=== PATIENT | male | born 1960 | race Hispanic/Latino ===

== ENCOUNTER 2018-04-20 00:07 | Observation (INO) | payer BC ==
[2018-04-20] MEDS ORDERED: Sodium Chloride 0.9% 1,000 ML IV STA (01:20)
--- NOTE | 2018-04-20 01:49 | ED PDOC ---
Arrival/HPI <Mart Fragoso - Last Filed: 04/20/18 04:26> - General Historian: Patient - History of Present Illness Narrative History of Present Illness (Text): 04/20/18 01:30 Pt is a 57 yo M with no significant pmhx who presents for dizziness and vomiting for the past 2 hours. He states that he feels as if the room is spinning and cant open his eyes or else he feel very unsteady. He states that he has been feeling this way since yesterday but only got worse about 2 hours ago, when he began to vomit. He reports that a similar episode happened about 2 years ago when he had food poisoning. He admits to having 1 bout of diarrhea yesterday, and states that he did eat out somewhere but is unsure what he had. He denies any pain, fevers, chills, chest pain, SOB, cough, abd pain, or dysuria. Pmhx: Denies Pshx: Denies Meds: Denies All: NKDA Social: Denies any tobacco hx, denies etoh or illicit drug use Fam hx: Denies Time/Duration: 1-3 hours Symptom Onset: Sudden Symptom Course: Improving <Tiburcio Hunter - Last Filed: 04/20/18 05:46> - General Chief Complaint: Dizziness/Lightheaded Time Seen by Provider: 04/20/18 00:09 Past Medical History - Provider Review Nursing Documentation Reviewed: Yes - Infectious Disease Hx of Infectious Diseases: None - Psychiatric Hx Substance Use: No - Anesthesia Hx Anesthesia: No <Tiburcio Hunter - Last Filed: 04/20/18 05:46> Family/Social History - Physician Review Nursing Documentation Reviewed: Yes Family/Social History: No Known Family HX Smoking Status: Never Smoked Hx Alcohol Use: No Hx Substance Use: No <Tiburcio Hunter - Last Filed: 04/20/18 05:46> Allergies/Home Meds <Mart Fragoso - Last Filed: 04/20/18 04:26> <Tiburcio Hunter - Last Filed: 04/20/18 05:46> Allergies/Adverse Reactions: Allergies No Known Allergies Allergy (Verified 04/20/18 05:44) Home Medications: Home Meds Medication Instructions Recorded Confirmed No Known Home Med 04/20/18 04/20/18 Review of Systems - Review of Systems Gastrointestinal: Vomiting Neurological: Dizziness <Mart Fragoso - Last Filed: 04/20/18 04:26> - Physician Review All systems were reviewed & negative as marked: Yes - Review of Systems Eyes: absent: Vision Changes ENT: absent: Hearing Changes, Tinnitus Cardiovascular: absent: Chest Pain, Syncope <Tiburcio Hunter - Last Filed: 04/20/18 05:46> Physical Exam Vital Signs Pulse Resp BP Pulse Ox 04/20/18 00:19 70 17 135/79 100 <Mart Fragoso - Last Filed: 04/20/18 04:26> Vital Signs Reviewed: Yes Vital Signs Pulse Resp BP Pulse Ox 04/20/18 00:19 70 17 135/79 100 Blood Pressure: Normal Pulse: Regular Respiratory Rate: Normal Appearance: Positive for: Uncomfortable Pain Distress: None Mental Status: Positive for: Alert and Oriented X 3 - Systems Exam Head: Present: Atraumatic, Normocephalic Pupils: Present: PERRL Extroacular Muscles: Present: Other (nystagmus present) Neck: Present: Normal Range of Motion. No: Meningeal Signs Respiratory/Chest: Present: Clear to Auscultation, Good Air Exchange. No: Respiratory Distress, Accessory Muscle Use, Wheezes, Rales, Rhonchi Cardiovascular: Present: Regular Rate and Rhythm, Normal S1, S2. No: Murmurs, Rub, Gallop Abdomen: Present: Normal Bowel Sounds. No: Tenderness, Distention, Peritoneal Signs, Rebound, Guarding Lower Extremity: Present: Normal Inspection, Neurovascularly Intact. No: Edema, CALF TENDERNESS, Nicole's Sign, Tenderness Neurological: Present: GCS=15, Speech Normal, Normal Sensory Function Skin: Present: Warm, Dry, Normal Color. No: Rashes Psychiatric: Present: Alert, Oriented x 3, Normal Insight, Normal Concentration <Tiburcio Hunter - Last Filed: 04/20/18 05:46> Medical Decision Making ED Course and Treatment: EXAM: CT Head w/o contrast SIGNED ON: 04/20/18 03:18 BY: Masha Wells M.D. IMPRESSION: Normal unenhanced CT scan of the brain. 04/20/18 04:[address] Carlos Graham who is aware and agrees with the plan. Accepts patient into his service. In agreement with resident note, which includes further HPI details. Patient was seen and evaluated with resident, came up with plan and treatment together. 57 year old male presents complaining of dizziness and vomiting for the past 2 hours. Plan: -- CT Head w/o contrast -- labs -- EKG -- Ativert, IV Fluids, Zofran inj - Lab Interpretations I have reviewed the lab results: Yes - RAD Interpretation Radiology Orders: 04/20/18 00:31 HEAD W/O CONTRAST [CT] Stat - EKG Interpretation Interpreted by ED Physician: Yes Type: 12 lead EKG - Medication Orders Current Medication Orders: Sodium Chloride (Sodium Chloride 0.9%) 1,000 mls @ 999 mls/hr IV .Q1H1M STA Stop: 04/20/18 02:20 Discontinued Medications Meclizine HCl (Antivert) 25 mg PO STAT STA Stop: 04/20/18 00:31 Ondansetron HCl (Zofran Inj) 4 mg IVP STAT STA Stop: 04/20/18 00:31 Ondansetron HCl (Zofran Inj) 4 mg IVP STAT STA Stop: 04/20/18 01:04 <Mart Fragoso - Last Filed: 04/20/18 04:26> ED Course and Treatment: 04/20/18 04:01 Pt is a 57 yo M with pmhx detailed above who presents for intractable dizziness and vomiting. - CBC - CMP - EKG - CT head w/o contrast - Zofran - Meclizine - RAD Interpretation Radiology Orders: 04/20/18 00:31 HEAD W/O CONTRAST [CT] Stat - EKG Interpretation EKG Interpretation (Text): 04/20/18 04:16 NSR @ 67 bpm Normal EKG - Medication Orders Current Medication Orders: Sodium Chloride (Sodium Chloride 0.9%) 1,000 mls @ 999 mls/hr IV .Q1H1M STA Stop: 04/20/18 02:20 Discontinued Medications Meclizine HCl (Antivert) 25 mg PO STAT STA Stop: 04/20/18 00:31 Ondansetron HCl (Zofran Inj) 4 mg IVP STAT STA Stop: 04/20/18 00:31 Ondansetron HCl (Zofran Inj) 4 mg IVP STAT STA Stop: 04/20/18 01:04 <Tiburcio Hunter - Last Filed: 04/20/18 05:46> - PA / PHARMACOGNOSIST / Resident Statement / has reviewed & agrees with the documentation as recorded. / has examined the patient and agrees with the treatment plan. - Scribe Statement The provider has reviewed the documentation as recorded by the Rudy Gallegos Provider Scribe Attestation: All medical record entries made by the Rudy were at my direction and personally dictated by me. I have reviewed the chart and agree that the record accurately reflects my personal performance of the history, physical exam, medical decision making, and the department course for this patient. I have also personally directed, reviewed, and agree with the discharge instructions and disposition. <Mart Fraogso - Last Filed: 04/20/18 04:26> Disposition/Present on Arrival - Present on Arrival Any Indicators Present on Arrival: No History of DVT/PE: No History of Uncontrolled Diabetes: No Urinary Catheter: No History of Decub. Ulcer: No History Surgical Site Infection Following: None - Disposition Have Diagnosis and Disposition been Completed?: Yes Disposition Time: 04:27 Patient Plan: Observation <Mart Fragoso - Last Filed: 04/20/18 04:26> - Present on Arrival Any Indicators Present on Arrival: No History of DVT/PE: No History of Uncontrolled Diabetes: No Urinary Catheter: No History of Decub. Ulcer: No History Surgical Site Infection Following: None - Disposition Have Diagnosis and Disposition been Completed?: Yes Patient Plan: Observation <Tiburcio Hunter - Last Filed: 04/20/18 05:46> - Disposition Diagnosis: Near syncope, Vertigo Disposition: HOSPITALIZED Patient Problems: Current Active Problems Problem Status Onset Near syncope Acute Vertigo Acute Condition: GOOD
[2018-04-20 01:53] LABS: BASO # 0.04 K/mm3 (0.0-2.0); BASO % 0.3 % (0.0-3.0); EOS # 0.4 (0.0-0.7); EOS % 2.7 % (1.5-5.0); GRAN # 11.44 (1.4-6.5); GRAN % 73.8 % (50.0-68.0); HEMOGLOBIN 15.9 g/dL (14.0-18.0); LYMPH # 2.7 (1.2-3.4); LYMPH % 17.7 % (22.0-35.0); MEAN CELL VOLUME 85.9 fl (80.0-105.0); MEAN CORPUSCULAR HEMOGLOBIN 30.8 pg (25.0-35.0); MEAN CORPUSCULAR HGB CONC 35.9 g/dl (31.0-37.0); MEAN PLATELET VOLUME 8.7 fl (7.0-11.0); MONO # 0.9 (0.1-0.6); MONO % 5.5 % (1.0-6.0); RBC 5.16 10^6/uL (3.5-6.1); RED CELL DISTRIBUTION WIDTH 13.2 % (11.5-14.5); WHITE BLOOD COUNT 15.5 10^3/ul (4.5-11.0)
[2018-04-20 01:59] LABS: ALB/GLOB RATIO 1.4 (1.1-1.8); ALBUMIN 4.9 g/dL (3.0-4.8); ALT/SGPT 36 U/L (7-56); AST/SGOT 39 U/L (17-59); BLOOD UREA NITROGEN 15 mg/dL (7-21); CALCIUM 9.7 mg/dL (8.4-10.5); GFR NON-AFRICAN AMERICAN > 60
[2018-04-20 02:09] LABS: TROPONIN I < 0.01 ng/mL
[2018-04-20 08:19] LABS: HEMOGLOBIN 14.7 g/dL (14.0-18.0); MEAN CORPUSCULAR HEMOGLOBIN 30.1 pg (25.0-35.0); MEAN CORPUSCULAR HGB CONC 35.4 g/dl (31.0-37.0); MEAN PLATELET VOLUME 8.2 fl (7.0-11.0); RBC 4.88 10^6/uL (3.5-6.1); RED CELL DISTRIBUTION WIDTH 13.1 % (11.5-14.5); WHITE BLOOD COUNT 13.3 10^3/ul (4.5-11.0)
--- NOTE | 2018-04-20 09:48 | CT ---
Date of service: 04/20/2018 PROCEDURE: CT HEAD WITHOUT CONTRAST. HISTORY: Dizziness COMPARISON: None available. TECHNIQUE: Axial computed tomography images were obtained through the head/brain without intravenous contrast. Radiation dose: Total exam DLP = 947 mGy-cm. This CT exam was performed using one or more of the following dose reduction techniques: Automated exposure control, adjustment of the mA and/or kV according to patient size, and/or use of iterative reconstruction technique. FINDINGS: HEMORRHAGE: No intracranial hemorrhage. BRAIN: No mass effect or edema. No atrophy or chronic microvascular ischemic changes. VENTRICLES: Unremarkable. No hydrocephalus. CALVARIUM: Unremarkable. PARANASAL SINUSES: Unremarkable as visualized. No significant inflammatory changes. MASTOID AIR CELLS: Unremarkable as visualized. No inflammatory changes. OTHER FINDINGS: The report concurs with the preliminary [facility] report IMPRESSION: Normal CT of the Head.
[2018-04-20] MEDS: Dextrose 5%/0.45% NS 1,000 ML IV SCH (11:36)
--- NOTE | 2018-04-20 13:02 | CARD ---
APPROVED REPORT Date of service: 04/20/2018 EKG Measurement Heart [id number] <Conclusion> Normal sinus rhythm Normal ECG
[2018-04-21 07:55] VITALS: O2SAT 97
[2018-04-21] MEDS ORDERED: Dexamethasone 2 MG in Sodium Chloride 0.9% 50 ML IV ONE (11:28)
[2018-04-21 12:06] VITALS: RESP 20
[2018-04-21] MEDS ORDERED: Naproxen 275 mg Tab PO PRN (12:17)
[2018-04-21] MEDS ORDERED: Naproxen 275 mg Tab PO STA (12:17)
[2018-04-21] MEDS: Dextrose 5%/0.45% NS 1,000 ML IV SCH (12:19)
--- NOTE | 2018-04-21 14:24 | CON ---
DATE: 04/21/2018 HISTORY OF PRESENT ILLNESS: This is a 57-year-old man with no significant past medical history. He came in with dizziness, being lightheaded and the room spinning with episode of vomiting open his eyes, usually feeling unsteady on his feet. Currently, he was given meclizine in the hospital, which his dizziness seems a lot better. He had a similar episode 2 years ago after food positioning. He admits to have one bout of diarrhea after eating some food that was unsure if it was old or not. He has currently no focal weakness, no nystagmus. He is moving all extremities. He is communicating well. His dizziness is much better. His CAT scan of the head showed no acute intracranial abnormalities. I gave him one dose of IV dexamethasone 2 mg x1 dose to reduce the intensity of dizziness. He is on meclizine p.r.n. He will be going for the MRI of the brain to see if any structural abnormality is causing dizziness, otherwise he will be seen as an outpatient. PAST MEDICAL HISTORY: Nothing significant. SOCIAL HISTORY: No illicit drug use, smoking or EtOH abuse. REVIEW OF SYSTEMS: Fourteen-point review of systems is negative except as per the HPI. FAMILY HISTORY: Noncontributory. MEDICATIONS: Reviewed by nurses's reconciliation sheet. LABORATORY DATA: Sodium is 140, potassium 3.6, chloride 101, carbon dioxide 22, BUN of 15, creatinine 0.8, random glucose of 149. PHYSICAL EXAMINATION: VITAL SIGNS: Temperature of 97.5, pulse rate of 71, blood pressure of 116/71, respiratory rate of 21, oxygen saturation 97% by room air. GENERAL: The patient is sitting up in bed, in no acute distress. HEENT: Atraumatic, normocephalic. PERRLA. Extraocular muscles intact. NECK: Supple. No JVD, no adenopathy noted. LUNGS: Clear to auscultation. No adventitious sounds. HEART: S1 and S2. Normal rate and rhythm. No murmurs, rubs or gallops. ABDOMEN: Soft, nontender and nondistended. Bowel sounds are present. EXTREMITIES: No clubbing. No cyanosis. Peripheral pulses 2+ felt bilaterally. NEUROLOGIC: The patient is alert and oriented to person, place, month and year. Speech is fluent without any errors. Cranial nerves II through XII are intact. Motor exam: Moves all extremities equally. No pronator drift seen. Sensory exam: Light touch, pinprick, proprioception and vibration are intact. DTRs are 2+ throughout. Coordination: [id number] intact. No dysmetria noted. Gait is deferred for now. No nystagmus seen on lateral movements of the eyes. IMPRESSION: Dizziness, seems mostly likely secondary to positional vertigo/vestibular neuritis, superimposed possibly underlying postural-induced dizziness. At this time, I will recommend, 1. Meclizine 25 mg p.o. t.i.d. at the acute onset of dizziness. 2. Outpatient vestibular therapy. 3. One dose of dexamethasone 2 mg to reduce the acute onset of dizziness. 4. MRI of the brain to see any structural abnormality is causing dizziness and if the MRI of the brain is negative, he can be discharged home and follow up as an outpatient. Thank you for this consult. Chip Stokes MD
[2018-04-21 17:58] VITALS: BP 123/84; PULSE 55; TEMP 98.3
--- NOTE | 2018-04-22 11:10 | MRI ---
Date of service: 04/21/2018 PROCEDURE: MRI BRAIN WITHOUT CONTRAST HISTORY: vertigo COMPARISON: Noncontrast head CT from 04/20/2018. TECHNIQUE: Multiplanar, multisequence MR images of the brain were obtained without intravenous contrast enhancement. FINDINGS: HEMORRHAGE: None DWI: No evidence of an acute or early subacute infarction. BRAIN PARENCHYMA: There is an old infarction in the right occipital lobe. There are few scattered T2/FLAIR hyperintense foci in the subcortical supratentorial frontal white matter. There is no mass, mass effect or abnormal extra-axial fluid collection. There is mild tonsillar ectopia. VENTRICLES: The ventricles are normal in size, shape and configuration. CRANIUM: There is normal bone marrow signal pattern. ORBITS: Grossly unremarkable. PARANASAL SINUSES/MASTOIDS: There is mild mucosal thickening in the paranasal sinuses, worse in the ethmoid air cells and left sphenoid chamber, and a small retention cyst/polyp in the left maxillary sinus. VASCULAR SYSTEM: There are normal signal voids in the larger intracranial arteries. OTHER FINDINGS: None. IMPRESSION: No acute intracranial abnormality. 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 Minimal supratentorial subcortical white matter changes are strictly nonspecific, the differential considerations include migraine headache effect, gliosis, early chronic microangiopathic changes amongst others. Mild chronic sinusitis, worse in the ethmoid air cells and left sphenoid chamber. A preliminary report was provided by [facility].
== END 2018-04-21 20:33 | disposition home or self-care (01) ==
LOC: ED 00:07 → ERH 04:15 → 2RNO 05:17
PROVIDERS: ADMIT Internal Medicine; ATTEND Internal Medicine
DX: H93.3X9 Disorders of unspecified acoustic nerve (principal); H81.10 Benign paroxysmal vertigo, unspecified ear; R55 Syncope and collapse; R42 Dizziness and giddiness
CPT/HCPCS: 36415; 70450; 70551; 80053; 82550; 83615; 83735; 84484; 85025; 85027; 93005; 99285; G0378; J1100; J7042

== ENCOUNTER 2018-07-10 15:04 | Observation (INO) | payer BC ==
[2018-07-10 15:26] VITALS: BMI 29.9
--- NOTE | 2018-07-10 15:46 | ED PDOC ---
Arrival/HPI - General Chief Complaint: Syncope Time Seen by Provider: 07/10/18 15:25 Historian: Patient, Spouse - History of Present Illness Narrative History of Present Illness (Text): 07/10/18 15:39 57 year old male, with no significant past medical history, presents to the emergency department s/p syncopal episode, 1 hour prior to arrival. Patient notes he was at the neurologist's office when he began to feel lightheaded while sitting and passed out. states that he was sweating and turned pale during syncope. Neurologist saw his heart rate drop down to 40 BPM and sent to the emergency department for further evaluation. As per documentation, MRA shows left carotid proximal ICA with critical stenosis, no significant stenosis on the right carotid. Patient denies any current complaints. He denies fevers, chills, headache, dizziness, chest pain, shortness of breath, dyspnea on exertion, cough, abdominal pain, nausea, vomiting, diarrhea, back pain, neck pain, or any other complaint. PMD: Dr. Graham Neurologist: Dr. Nir Sung 07/10/18 17:45 Time/Duration: 1 hour Symptom Onset: Sudden Activities at Onset: Light Context: Other (doctors office) Past Medical History - Provider Review Nursing Documentation Reviewed: Yes - Infectious Disease Hx of Infectious Diseases: None - Cardiac Hx Cardiac Disorders: No - Pulmonary Hx Respiratory Disorders: No - Neurological Hx Neurological Disorder: No - HEENT Hx HEENT Disorder: No - Renal Hx Renal Disorder: No - Endocrine/Metabolic Hx Endocrine Disorders: No - Hematological/Oncological Hx Blood Disorders: No - Integumentary Hx Dermatological Disorder: No - Musculoskeletal/Rheumatological Hx Musculoskeletal Disorders: No Hx Falls: No - Gastrointestinal Hx Gastrointestinal Disorders: No - Genitourinary/Gynecological Hx Genitourinary Disorders: No - Psychiatric Hx Psychophysiologic Disorder: No Hx Substance Use: No - Anesthesia Hx Anesthesia: No Family/Social History - Physician Review Nursing Documentation Reviewed: Yes Family/Social History: No Known Family HX Smoking Status: Never Smoked Hx Alcohol Use: No Hx Substance Use: No Allergies/Home Meds Allergies/Adverse Reactions: Allergies No Known Allergies Allergy (Verified 04/20/18 05:44) Review of Systems - Physician Review All systems were reviewed & negative as marked: Yes - Review of Systems Constitutional: absent: Fatigue, Weight Change, Fevers Eyes: absent: Vision Changes, Photophobia ENT: absent: Hearing Changes, Tinnitus Respiratory: absent: SOB, Cough Cardiovascular: Syncope. absent: Chest Pain Gastrointestinal: absent: Abdominal Pain, Diarrhea, Nausea, Vomiting Genitourinary Male: absent: Dysuria, Frequency, Hematuria Musculoskeletal: absent: Back Pain, Neck Pain Skin: absent: Rash Neurological: absent: Headache, Dizziness Endocrine: absent: Diaphoresis Psychiatric: absent: Anxiety, Depression Physical Exam Vital Signs Reviewed: Yes Vital Signs Temp Pulse Resp BP Pulse Ox 07/10/18 15:24 98.4 F 56 L 17 128/68 99 Temperature: Afebrile Blood Pressure: Normal Pulse: Bradycardic Respiratory Rate: Normal Appearance: Positive for: Well-Appearing, Non-Toxic, Comfortable Pain Distress: None Mental Status: Positive for: Alert and Oriented X 3 - Systems Exam Head: Present: Atraumatic, Normocephalic Pupils: Present: PERRL Extroacular Muscles: Present: EOMI Conjunctiva: Present: Normal Ears: Present: Normal, NORMAL TM Mouth: Present: Moist Mucous Membranes Pharnyx: Present: Normal. No: ERYTHEMA, EXUDATE Neck: Present: Normal Range of Motion. No: Meningeal Signs, MIDLINE TENDERNESS Respiratory/Chest: Present: Clear to Auscultation, Good Air Exchange. No: Respiratory Distress, Accessory Muscle Use Cardiovascular: Present: Regular Rate and Rhythm, Normal S1, S2. No: Murmurs Abdomen: No: Tenderness, Distention, Peritoneal Signs Back: Present: Normal Inspection. No: CVA Tenderness Upper Extremity: Present: Normal Inspection. No: Cyanosis, Edema Lower Extremity: Present: Normal Inspection. No: Edema Neurological: Present: GCS=15, CN II-XII Intact, Speech Normal, Motor Func Grossly Intact, Normal Sensory Function, Normal Cerebellar Funct, Gait Normal Skin: Present: Warm, Dry, Normal Color. No: Rashes Psychiatric: Present: Alert, Oriented x 3, Normal Insight, Normal Concentration Medical Decision Making ED Course and Treatment: 07/10/18 15:47 Impression: 57 year old male who presents to the emergency department s/p syncope. Likely cardiogenic vs neurogenic syncope, however per family bedside, Dr. loyola indicated likely cardiogenic. L carotid stenosis per MRA recently. Pt denies any FND. Normal neuro exam. No reported seizure like activity. No abdominal pain, headache, chest pain or sob. No fall or trauma. No chest pain or sob. Given that pt was abril into the 40's ?arrythmia. Will seek labs. Plan: -- EKG -- Labs -- IV Fluids -- Cardiac Enzymes -- Reassess and disposition Prior Visits: Notes and results from previous visits were reviewed. Progress Notes: EKG reviewed, shows: Sinus bradycardiac at 54 BPM. No stemi. Pressure stable 07/10/18 17:40 appreciate consult w/ Dr. Loyola: Syncope likely cardiogenic and non- neurogenic. left CA findings non-contributory to syncope. Pt was abril in front of him w/ out any exertion/ stressors, unlikely vasovagal. No Focal neuroligical deficits or seizure like activity noted. appreciate consult w/ Dr. Calderon: To admit to his broth, augustine pena, tele for syncope w/u pt and family agreeable to plan. Pt in NAD. - Lab Interpretations I have reviewed the lab results: Yes - EKG Interpretation Interpreted by ED Physician: Yes Type: 12 lead EKG - Scribe Statement The provider has reviewed the documentation as recorded by the Rudy Gray Provider Scribe Attestation: All medical record entries made by the Scribe were at my direction and personally dictated by me. I have reviewed the chart and agree that the record accurately reflects my personal performance of the history, physical exam, medical decision making, and the department course for this patient. I have also personally directed, reviewed, and agree with the discharge instructions and disposition. Disposition/Present on Arrival - Present on Arrival Any Indicators Present on Arrival: No History of DVT/PE: No History of Uncontrolled Diabetes: No Urinary Catheter: No History of Decub. Ulcer: No History Surgical Site Infection Following: None - Disposition Have Diagnosis and Disposition been Completed?: Yes Diagnosis: Syncope Disposition: HOSPITALIZED Disposition Time: 17:46 Condition: GOOD Discharge Instructions (ExitCare): Syncope (ED) Forms: [employer] [facility] [facility] (Gabonese)
[2018-07-10] MEDS: Sodium Chloride 0.9% 1,000 ML IV SCH (16:35)
[2018-07-10 16:54] LABS: ALB/GLOB RATIO 1.4 (1.1-1.8); ALBUMIN 4.5 g/dL (3.0-4.8); ALT/SGPT 39 U/L (7-56); AST/SGOT 33 U/L (17-59); BLOOD UREA NITROGEN 15 mg/dL (7-21); CALCIUM 9.3 mg/dL (8.4-10.5); GFR NON-AFRICAN AMERICAN > 60
[2018-07-10 16:55] LABS: BASO # 0.02 K/mm3 (0.0-2.0); BASO % 0.2 % (0.0-3.0); EOS # 0.4 (0.0-0.7); EOS % 4.1 % (1.5-5.0); GRAN # 6.3 (1.4-6.5); GRAN % 68.7 % (50.0-68.0); LYMPH # 1.9 (1.2-3.4); LYMPH % 20.9 % (22.0-35.0); MEAN CELL VOLUME 88.3 fl (80.0-105.0); MEAN CORPUSCULAR HEMOGLOBIN 30.4 pg (25.0-35.0); MEAN CORPUSCULAR HGB CONC 34.4 g/dl (31.0-37.0); MEAN PLATELET VOLUME 8.4 fl (7.0-11.0); MONO # 0.6 (0.1-0.6); MONO % 6.1 % (1.0-6.0); RBC 4.94 10^6/uL (3.5-6.1); RED CELL DISTRIBUTION WIDTH 13.6 % (11.5-14.5); WHITE BLOOD COUNT 9.2 10^3/uL (4.5-11.0)
[2018-07-10 17:06] LABS: TROPONIN I < 0.01 ng/mL
--- NOTE | 2018-07-10 18:48 | CARD ---
APPROVED REPORT Date of service: 07/10/2018 EKG Measurement Heart [id number] <Conclusion> Sinus bradycardia Otherwise normal ECG
[2018-07-11] MEDS: Sodium Chloride 0.9% 1,000 ML IV SCH ×3 (05:56→17:50)
--- NOTE | 2018-07-11 08:08 | CP.PCM.CON ---
History of Present Illness - History of Present Illness History of Present Illness: Awake, alert, lying in bed, no distress Reason for consultation: Cardiac evaluation of syncope Brief history of present illness:A 57 year old male who was brought to the ER by EMS due to syncopal episode at Neurologist's office.He began to feel lightheaded while sitting and passed out witnessed by and doctor. Heart rate at that time was 40/min as checked by neurologist. He had similar episode last April 2018 and work up was on going. 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 Neurologist was explaining the result of the MRA when passing out happened. Denies chest pain, Denies shortness of breath. Seen and examined by me and Dr. Guzmán Review of Systems - Review of Systems All systems: reviewed and no additional remarkable complaints except Review of Systems: as per HPI Past Patient History - Infectious Disease Hx of Infectious Diseases: None - Past Social History Smoking Status: Never Smoked - CARDIAC Hx Cardiac Disorders: No - PULMONARY Hx Respiratory Disorders: No - NEUROLOGICAL Hx Neurological Disorder: (vertigo) - HEENT Hx HEENT Problems: No - RENAL Hx Chronic Kidney Disease: No - ENDOCRINE/METABOLIC Hx Endocrine Disorders: No - HEMATOLOGICAL/ONCOLOGICAL Hx Blood Disorders: No - INTEGUMENTARY Hx Dermatological Problems: No - MUSCULOSKELETAL/RHEUMATOLOGICAL Hx Falls: No - GASTROINTESTINAL Hx Gastrointestinal Disorders: No - GENITOURINARY/GYNECOLOGICAL Hx Genitourinary Disorders: No - PSYCHIATRIC Hx Psychophysiologic Disorder: No Hx Substance Use: No - SURGICAL HISTORY Hx Surgeries: No - ANESTHESIA Hx Anesthesia: No Meds Allergies/Adverse Reactions: Allergies Allergy/AdvReac Type Severity Reaction Status Date / Time No Known Allergies Allergy Verified 04/20/18 05:44 - Medications Medications: Current Medications Sodium Chloride (Sodium Chloride 0.9%) 1,000 mls @ 100 mls/hr IV .Q10H ATA Last Admin: 07/11/18 06:58 Dose: Not Given Physical Exam - Constitutional Appears: Non-toxic, No Acute Distress - Head Exam Head Exam: NORMAL INSPECTION, NORMOCEPHALIC - Eye Exam Eye Exam: Normal appearance Pupil Exam: NORMAL ACCOMODATION - ENT Exam ENT Exam: Mucous Membranes Moist, Normal Exam - Respiratory Exam Respiratory Exam: Clear to Auscultation Bilateral, NORMAL BREATHING PATTERN - Cardiovascular Exam Cardiovascular Exam: Bradycardia, +S1, +S2 Additional comments: Telemetry SB 50's - GI/Abdominal Exam GI & Abdominal Exam: Normal Bowel Sounds, Soft - Extremities Exam Extremities exam: Positive for: full ROM, normal capillary refill - Neurological Exam Neurological exam: Alert, Normal Gait, Oriented x3 Additional comments: denies dizziness - Psychiatric Exam Psychiatric exam: Normal Affect, Normal Mood - Skin Skin Exam: Dry, Normal Color, Warm Results - Vital Signs Recent Vital Signs: Last Vital Signs Temp 96 F L 07/11/18 06:00 Pulse 59 L 07/11/18 06:00 Resp 20 07/11/18 06:00 BP 110/67 07/11/18 06:00 Pulse Ox 96 07/11/18 06:00 - Labs Result Diagrams: 07/10/18 16:40 07/10/18 16:40 Labs: Laboratory Results - last 24 hr 07/10/18 07/10/18 07/10/18 16:40 16:40 16:40 WBC 9.2 RBC 4.94 Hgb 15.0 Hct 43.6 MCV 88.3 D MCH 30.4 MCHC 34.4 RDW 13.6 Plt Count 215 MPV 8.4 Gran % 68.7 H Lymph % (Auto) 20.9 L Payne % (Auto) 6.1 H Eos % (Auto) 4.1 Baso % (Auto) 0.2 Gran # 6.30 Lymph # (Auto) 1.9 Payne # (Auto) 0.6 Eos # (Auto) 0.4 Baso # (Auto) 0.02 Sodium 138 Potassium 4.9 Chloride 104 Carbon Dioxide 31 Anion Gap 9 L BUN 15 Creatinine 0.8 Est GFR ( Amer) > 60 Est GFR (Non-Af Amer) > 60 Random Glucose 85 Calcium 9.3 Magnesium 2.3 H Total Bilirubin 0.5 AST 33 ALT 39 Alkaline Phosphatase 55 Troponin I < 0.01 Total Protein 7.8 Albumin 4.5 Globulin 3.2 Albumin/Globulin Ratio 1.4 TSH 3rd Generation 2.29 Assessment & Plan - Assessment and Plan (Free Text) Assessment: A 57 year old male who was brought to the ER by EMS due to syncopal episode at Neurologist's office.He began to feel lightheaded while sitting and passed out witnessed by and doctor. Heart rate at that time was 40/min as checked by neurologist. He had similar episode last April 2018 but not passing out and work up was on going. 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 Neurologis t was explaining the result of the MRA when passing out happened. History of vertigo,on Antivert. Denies any cardiac history. Denies chest pain, Denies shortness of breath. Troponin normal.No previous cardiac work up done at [facility] [place], [place]. Will order ECHO to evaluate LV function. Holter monitor to rule out arrythmias. Normal orthostatic blood pressure. Plan: No distress, denies chest pain ECHO to evaluate LV function. Holter monitor to rule out arrythmias. Heart rate on 50's- telemetry No betablockers Orthostatic blood pressure normal Lying BP-110/67 Sitting BP- 140/94 Standing BP-139/95 Continue current treatment Continue current medications Further recommendations during hospital course Chart reviewed Will follow up Plan and treatment discussed with Dr. Guzmán Thank you Dr. Graham for the opportunity of taking care of Mr. Carlos Lyn - Date & Time Date: 07/11/18 Time: 06:30
--- NOTE | 2018-07-11 08:49 | RAD ---
Date of service: 07/10/2018 HISTORY: syncope COMPARISON: No prior. TECHNIQUE: Chest PA and lateral FINDINGS: LUNGS: No active pulmonary disease. PLEURA: No significant pleural effusion identified. No pneumothorax apparent. CARDIOVASCULAR: No aortic atherosclerotic calcification present. Normal cardiac size. No pulmonary vascular congestion. OSSEOUS STRUCTURES: No significant abnormalities. VISUALIZED UPPER ABDOMEN: Normal. OTHER FINDINGS: None. IMPRESSION: No active disease.
[2018-07-11 09:10] LABS: BASO # 0.03 K/mm3 (0.0-2.0); BASO % 0.4 % (0.0-3.0); EOS # 0.5 (0.0-0.7); EOS % 6.7 % (1.5-5.0); GRAN # 3.67 (1.4-6.5); GRAN % 52.6 % (50.0-68.0); HEMOGLOBIN 14.7 g/dL (14.0-18.0); LYMPH # 2.2 (1.2-3.4); LYMPH % 31.9 % (22.0-35.0); MEAN CELL VOLUME 88.7 fl (80.0-105.0); MEAN CORPUSCULAR HEMOGLOBIN 30.2 pg (25.0-35.0); MEAN CORPUSCULAR HGB CONC 34.1 g/dl (31.0-37.0); MONO # 0.6 (0.1-0.6); MONO % 8.4 % (1.0-6.0); RBC 4.86 10^6/uL (3.5-6.1); RED CELL DISTRIBUTION WIDTH 13.7 % (11.5-14.5)
[2018-07-11 09:20] LABS: ALB/GLOB RATIO 1.4 (1.1-1.8); ALBUMIN 4.3 g/dL (3.0-4.8); ALT/SGPT 36 U/L (7-56); AST/SGOT 29 U/L (17-59); BLOOD UREA NITROGEN 17 mg/dL (7-21); CALCIUM 8.9 mg/dL (8.4-10.5); GFR NON-AFRICAN AMERICAN > 60; HDL CHOLESTEROL 50 mg/dL (29-60)
[2018-07-11 09:30] LABS: LDL CHOLESTEROL 118 mg/dL (0-129)
--- NOTE | 2018-07-11 09:30 | CON ---
DATE: 07/11/2018 CONSULT SERVICE: Cardiology. REASON FOR CONSULTATION: Cardiac evaluation, admitted with the syncope. This note is addition to dictated by our nurse practitioner, Mignon Deluna. HISTORY OF PRESENT ILLNESS: In summary, this is 57-year-old male who admitted 2 weeks ago with vertigo, found to be viral infection in the middle ear who had MRI of the brain done, yesterday went to see Dr. Loyola neurologist who told him that the patient has a left carotid artery totally occluded and the right is normal, after listening this news he passed out. Similar episode happened 10 years ago when the patient was in doctor's office withdrawing the blood. Denies any chest pain, shortness of breath, any palpitation. Though the campus monitor shows the patient has some bradycardia baseline, the patient's EKG is normal sinus and the bradycardia, heart rate 52. So far, the patient has been orthostatic with change in blood pressure 110, on lying down it was 67, sitting 140/94, and standing 139/95. No evidence of orthostatic hypotension. CURRENT MEDICATION: The patient only takes meclizine. Denies any episode of chest pain, shortness of breath, any palpitation, dyspnea on exertion, operates machine. RECOMMENDATION: We will get Holter to rule out any significant bradycardia, echo to rule out any structural heart disease and consider stress test as outpatient because of the strong association of peripheral artery disease, coronary artery disease for risk of stratification, also we will get lipid profile, TSH and hemoglobin A1c. Thank you Dr. Graham for providing us the opportunity in taking care of the patient, Carlos Lyn. We will follow with you. Further recommendation out for the echo report. Cruz Guzmán MD EAVN
--- NOTE | 2018-07-11 16:16 | CARD ---
APPROVED REPORT Date of service: 07/11/2018 EXAM: Two-dimensional and M-mode echocardiogram with Doppler and color Doppler. INDICATION LV Function:SystolicDiastolic 2D DIMENSIONS Left Atrium (2D)3.9 (1.6-4.0cm)IVSd1.2 (0.7-1.1cm) LVDd5.1 (3.9-5.9cm)PWd1.0 (0.7-1.1cm) LVDs3.3 (2.5-4.0cm)FS (%) 34.2 % LVEF (%)63.0 (>50%) M-Mode DIMENSIONS Aortic Root2.60 (2.2-3.7cm)Aortic Cusp Exc.2.00 (1.5-2.0cm) Aortic Valve AoV Peak Pljgwtsk319.0cm/Darvin Peak GR.9mmHg Mitral Valve MV E Xcghsecp30.0cm/sMV A Mqlnndxt918.0cm/sE/A ratio0.9 TDI E/Lateral E'0.0E/Medial E'0.0 Tricuspid Valve TR Peak Fuvrtvhp883gs/sRAP [id number] Peak Gr.9mmHg [id number] LEFT VENTRICLE The left ventricle is normal size. Proximal septal thickening is noted, But no evidence of IHSS There is borderline concentric left ventricular hypertrophy. The left ventricular function is normal.EF-60-65% There is normal LV segmental wall motion. Transmitral Doppler flow pattern is Grade III-reversible restrictive diastolic dysfunction. No left ventricle thrombus noted on this study. There is no ventricular septal defect visualized. There is no left ventricular aneurysm. There is no mass noted in the left ventricle. RIGHT VENTRICLE The right ventricle is normal size. There is normal right ventricular wall thickness. The right ventricular systolic function is normal. ATRIA The left atrium size is normal. The right atrium size is normal. The interatrial septum is intact with no evidence for an atrial septal defect. AORTIC VALVE The aortic valve is thickened but opens well. There is trace aortic regurgitation. There is no aortic valvular stenosis. There is no aortic valvular vegetation. MITRAL VALVE The mitral valve is thickened but opens well. Mitral regurgitation is trace. There is no mitral valve stenosis. There is no evidence of mitral valve prolapse. TRICUSPID VALVE The tricuspid valve leaflets are thickened , but open well. There is trace tricuspid regurgitation. There is no tricuspid valve stenosis. There is no tricuspid valve prolapse or vegetation. PULMONIC VALVE The pulmonary valve is normal in structure. TRivial PI There is no pulmonic valvular stenosis. GREAT VESSELS The aortic root is normal in size. The ascending aorta is normal in size. The pulmonary artery is normal. The IVC is normal in size and collapses >50% with inspiration. PERICARDIAL EFFUSION There is no pleural effusion. There is no pericardial effusion. <Conclusion> Normal chamber size, EF-60-65% Trace MR/TR/AR Trivial PI. RVSP-19 mmof Hg. Proximal septal thickening is noted, But no evidence of IHSS There is borderline concentric left ventricular hypertrophy.
[2018-07-12 05:48] VITALS: O2SAT 97
[2018-07-12] MEDS: Sodium Chloride 0.9% 1,000 ML IV SCH (05:55)
--- NOTE | 2018-07-12 07:57 | CP.PCM.PN ---
Subjective - Date & Time of Evaluation Date of Evaluation: 07/12/18 Time of Evaluation: 06:30 - Subjective Subjective: Awake, alert, lying in bed, no distress Reason for consultation and follow up: Cardiac evaluation of syncope, rule out orthostatic hypotension,history of vertigo,left carotid proximal ICA with critical stenosis Seen and examined by me and Dr. Guzmán Objective - Vital Signs/Intake and Output Vital Signs (last 24 hours): Temp Pulse Resp BP Pulse Ox 97.8 F 46 L 20 108/68 97 07/12/18 05:47 07/12/18 05:47 07/12/18 05:47 07/12/18 05:47 07/12/18 05:47 Intake and Output: 07/12/18 07/12/18 06:59 18:59 Intake Total 2203 Balance 2203 - Medications Medications: Current Medications Aspirin (Ecotrin) 81 mg PO DAILY ATA Sodium Chloride (Sodium Chloride 0.9%) 1,000 mls @ 100 mls/hr IV .Q10H ATA Last Admin: 07/12/18 05:55 Dose: 100 mls/hr - Labs Labs: 07/11/18 09:00 07/11/18 09:00 - Constitutional Appears: Non-toxic, No Acute Distress - Head Exam Head Exam: NORMAL INSPECTION, NORMOCEPHALIC - Eye Exam Eye Exam: Normal appearance Pupil Exam: NORMAL ACCOMODATION - ENT Exam ENT Exam: Mucous Membranes Moist, Normal Exam - Neck Exam Neck Exam: Full ROM - Respiratory Exam Respiratory Exam: Clear to Ausculation Bilateral, NORMAL BREATHING PATTERN - Cardiovascular Exam Cardiovascular Exam: Bradycardia, +S1, +S2 - GI/Abdominal Exam GI & Abdominal Exam: Soft, Normal Bowel Sounds - Extremities Exam Extremities Exam: Full ROM, Normal Capillary Refill - Neurological Exam Neurological Exam: Alert, Awake, Oriented x3 - Psychiatric Exam Psychiatric exam: Normal Affect, Normal Mood - Skin Skin Exam: Dry, Normal Color, Warm Assessment and Plan - Assessment and Plan (Free Text) Assessment: A 57 year old male who was brought to the ER by EMS due to syncopal episode at Neurologist's office.He began to feel lightheaded while sitting and passed out witnessed by and doctor. Heart rate at that time was 40/min as checked by neurologist. He had similar episode last April 2018 but not passing out and work up was on going. 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 Neurologist was explaining the result of the MRA when passing out happened. History of vertigo,on Antivert. Denies any cardiac history. Denies chest pain, Denies shortness of breath. Troponin normal.No previous cardiac work up done at [facility] [place]. ECHO done.On Holter monitor to rule out arrythmias. Normal orthostatic blood pressure. Plan: No distress, denies chest pain, feels okay, denies lightheadedness Echo done-normal chambers, LVEF 60-65% Trace MR/TR/AR RVSP 19 mmHg Trivial PI, proximal septal thickening noted but no IHSS On Holter monitor will follow up result (due 3 pm today) Heart rate on 40-50's- telemetry No betablockers Continue current treatment Continue current medications Chart reviewed Will follow up Plan and treatment discussed with Dr. Guzmán
[2018-07-12 12:06] VITALS: BP 134/85; RESP 21; TEMP 98.3
--- NOTE | 2018-07-12 13:16 | PN ---
DATE: 07/12/2018 SEX OF THE PATIENT: Male. AGE OF THE PATIENT: 57. REASON FOR CONSULTATION: Followup cardiac evaluation, presyncope, rule out orthostatic hypotension, rule out situational syncope, history of left carotid artery stenosis. The patient denies any chest pain, shortness of breath, or any palpitation. Telemetry showed heart rate of 50, blood pressure orthostatic showed lying 114/73, sitting 133/85, and standing 138/91. This note is addition to note dictated by nurse practitioner, Mignon Deluna. SUBJECTIVE: In summary, this is a 57-year-old male with past medical history, recently found vertigo, on meclizine. MRA showed carotid artery stenosis. When the patient was told, the patient passed out, most likely situational syncope. That happened to the patient 20 years ago when he had a blood draw and in the doctor's office, he passed out, but needs to rule out any significant symptomatic bradycardia because the patient had the bradycardia, on no medication. Holter is in progress. Echo showed preserved LV function, no significant structural heart disease to account for syncope. Ejection fraction 65%, trace MR, trace TR, trace AR, trivial PI, proximal septal thickening, but no evidence of IHSS. RECOMMENDATIONS: When the Holter is completed, we will possibly discharge home upon completion of the Holter and we will follow the stress as outpatient in [address] Graham for providing us the opportunity in taking care of your patient, Riki Gonzalez. Cruz Guzmán MD
--- NOTE | 2018-07-12 14:55 | HP ---
HISTORY OF PRESENT ILLNESS: The patient is a 57-year-old male who was admitted through the emergency room after suffering a syncopal episode. The patient has been complaining of vertigo, it was resistant to meclizine. The patient was hospitalized for this within the past month. He did respond however to steroids orally. He was discharged to home. When seen in followup in the office visit he was still complaining of episodes of slight vertigo. He was referred to see a neurologist, Dr. Pineda Loyola. The neurologist suggested MRA of the head and neck which the patient had done and on the day of admission, the patient was seen Dr. Loyola for follow up with the results. Dr. Loyola explained to the patient about a critical stenosis in the left internal carotid artery. However, the right internal and external carotid arteries in the [place] were clear and the patient should be watching his cholesterol and taking an aspirin a day. At this point, the patient syncopied in the office of his neurologist and the squad was called. The patient was brought to the emergency room and he is admitted. PAST MEDICAL HISTORY: The patient has only a other past medical history for chronic low back pain for which he occasionally takes a Percocet. SOCIAL HISTORY: He is a nonsmoker and nonalcoholic drinker. ALLERGIES: HE HAS NO KNOWN MEDICAL ALLERGIES. PHYSICAL EXAMINATION: GENERAL: When seen; he is awake, alert and oriented and in good spirits. HEAD, EYES, EARS, NOSE AND THROAT: Unremarkable. NECK: Supple with no lymphadenopathy. No goiter. LUNGS: Clear to auscultation and percussion. HEART: Regular. No murmurs are appreciated. ABDOMEN: Soft and nontender with no organomegaly. EXTREMITIES: Free of cyanosis, clubbing or edema. NEUROLOGIC: The patient is awake, alert and oriented and there are no focal neurological signs. LABORATORY STUDIES: Show the white blood cell count to be normal at 9.2, hemoglobin and hematocrit are 15.0 and 43.6, platelet count is 215. Sodium is 138, potassium 4.9, blood urea nitrogen is 15, creatinine is 0.8, glucose is 85. Magnesium was 2.3 which is slightly elevated. His troponins are negative. Thyroid-stimulating hormone is normal at 2.29. Chest x-ray shows no acute disease. His EKG shows regular sinus bradycardia, but otherwise normal. Consultation from Dr. Guzmán, the supervisor research kennel is requested as well as consultation from his neurologist, Dr. Loyola. The patient will be reevaluated in the morning. Carlos Graham MD EVAN
[2018-07-12 15:14] VITALS: PULSE 55
--- NOTE | 2018-07-12 16:26 | PN ---
DATE: 07/11/2018 SUBJECTIVE: The patient is a 57-year-old male with essentially negative past medical history, who had been suffering from dizziness, which did not respond to meclizine, but did respond to steroid. He had a MRA of the head and neck as ordered by his neurologist and when in his neurologist's office receiving news of a critical left internal carotid stenosis, the patient syncopied, squad was called. He was brought to the emergency room and admitted. When seen today, the patient is sitting up in bed. He is awake, alert, and oriented. He is in good spirits. Echocardiogram was performed by Dr. Kwon, his road machine runner and was essentially negative with a good ejection fraction between 60 and 65%. The patient is currently on a Holter monitor. Once the Holter monitor is removed probably tomorrow, the patient will be cleared for discharge. He is to follow up with his road machine runner for thallium stress test as an outpatient. It was explained to the patient that there is not any further procedures to be done on the left internal carotid artery and that the right carotids and [place] were all clean and should offer him no problem, and the risk of intervention would not outweigh any potential benefits. The patient is to be reevaluated in the morning and possibly discharged to home at that time to continue to take aspirin 81 mg once a day. Carlos Graham MD MTDVaibhav
--- NOTE | 2018-07-14 09:17 | DS ---
HISTORY OF PRESENT ILLNESS: This is a 57-year-old man with a history of vagal syncope during phlebotomy and other episodes in his past history, who was recently treated for viral labyrinthitis. He was seeing his neurologist in the midst of that workup after Dr. Loyola explained to him that his carotid occlusion on MRA. The patient felt hot, flush, profusely sweating and lightheaded. He laid down lost his consciousness woke abruptly and was taken to the emergency room after Dr. Loyola called in the emergency services. PAST MEDICAL HISTORY: Essentially negative. MEDICATIONS: He takes no medications at home except for meclizine and a baby aspirin. COURSE OF HOSPITAL STAY: The patient was admitted, seen by cardiologists, Dr. King and Ramirez. EKG was unremarkable. Echocardiogram was done with a good ejection fraction of 60-65%, normal chamber size and otherwise essentially unremarkable. The patient remained comfortable and stable on telemetry, was ready for discharge on the morning of 07/12/2018, after 24-hour Holter would be completed. FINAL DISCHARGE DIAGNOSES: 1. Vagal syncope. 2. History of vagal syncope in the past with phlebotomy and emotion/bad news, not eating, intestinal virus, etc.. 3. History of vertigo. PLAN: I sat and spoke with the patient for length of time, explained vagal syncope, dropped in blood pressure, power and diaphoresis, need to lay down in the future for phlebotomy. We also discussed the carotid occlusion. This may have been a congenital anomaly versus an old occlusion, but something that would be looked at further with radiologist and when he follows up with Dr. Loyola in the near future. We also discussed the vertigo causes of labyrinthitis. He was discharged on aspirin 81 mg daily. He will followup with us in the office in [address] Loyola within 2 weeks. Wellington Graham MD MTDVaibhav
--- NOTE | 2018-07-15 10:51 | CARD ---
APPROVED REPORT Date of service: 07/11/2018 Reason for Test: BRADYCARDIA Hookup date: 2018-07-11 Removal date: 2018-07-12 Scan date: 2018-07-14 Recording time: 23 hr 59 min Heart Rate Data Total Beats: 70057 Min HR: 42 BPM at 6:13:38 AM Avg HR: 56 BPM Max HR: 92 BPM at 10:57:03 AM Supraventricular Ectopy Total VE Beats: 13 (0.0%) Drop/Late: 0/1 Longest R-R: 1.5 sec at 7:08:37 AM Single PAC's: 12 Conclusion SINUS RHYTHM / SINUS BRADYCARDIA MINIMUM HR 42 MAXIMUM HR 92 One 1.4 SEC pause [facility]S DIARY GIVEN NOT AVAILABLE
== END 2018-07-12 15:50 | disposition home or self-care (01) ==
LOC: ED 15:04 → ERH 17:46 → 2RNO 22:33
PROVIDERS: ADMIT Internal Medicine; ATTEND Internal Medicine
DX: R55 Syncope and collapse (principal); H83.09 Labyrinthitis, unspecified ear; B34.9 Viral infection, unspecified; I65.22 Occlusion and stenosis of left carotid artery; R00.1 Bradycardia, unspecified
CPT/HCPCS: 36415; 71046; 80053; 80061; 83036; 83735; 84443; 84484; 85025; 93005; 93225; 93226; 93306; 99285; G0378; J7030

== ENCOUNTER 2018-07-23 09:05 | Outpatient (CLI) | payer BC | END 2018-07-23 09:06 | disposition home or self-care (01) | LOC: CARDIO 09:05 | DX: I25.10 Atherosclerotic heart disease of native coronary artery without angina pectoris (principal); R07.9 Chest pain, unspecified ==